=== PATIENT | female | born 1960 | race Caucasian/White ===

== ENCOUNTER 2019-01-19 08:40 | Day surgery (SDC) | payer BC ==
[2019-01-12 11:26] LABS: BASOPHILS # (AUTO) 0.1 X10'3 (0-0.2); BASOPHILS % (AUTO) 0.8 % (0-1); EOSINOPHILS # (AUTO) 0.2 X10'3 (0-0.9); EOSINOPHILS % (AUTO) 2.6 % (0-6); LYMPHOCYTES # (AUTO) 1.5 X10'3 (1.1-4.8); LYMPHOCYTES % (AUTO) 19.8 % (21-51); MEAN CORPUSCULAR HGB CONC 34.5 g/dL (33.0-36.5); MEAN CORPUSCULAR VOLUME 86.8 FL (78-98); MEAN PLATELET VOLUME 9.3 FL (7.4-10.4); MONOCYTES # (AUTO) 0.7 X10'3 (0-0.9); MONOCYTES % (AUTO) 9.2 % (2-12); NEUTROPHILS # (AUTO) 5.1 X10'3 (1.8-7.7); NEUTROPHILS % (AUTO) 67.6 % (42-75); PRE OP HEMATOCRIT 40.4 % (35.0-45.0); PRE OP HEMOGLOBIN 13.9 g/dL (12.0-16.0); PRE OP PLATELET COUNT 227 X10'3 (140-440); RED BLOOD COUNT 4.65 X10'6 (4.20-5.60); RED CELL DISTRIBUTION WIDTH 13.8 % (11.5-14.5)
[2019-01-12 11:46] LABS: ALBUMIN 3.7 G/DL (3.4-5.0); ALBUMIN/GLOBULIN RATIO 1.1 (1.1-1.5); ALKALINE PHOSPHATASE 97 IU/L (46-116); BLOOD UREA NITROGEN 21 MG/DL (7-18); BUN/CREATININE RATIO 25.3 (6.6-38.0); CHLORIDE 107 MMOL/L (99-107); CREATININE 0.83 MG/DL (0.40-0.90); PRE OP ALT 53 U/L (30-65); PRE OP ANION GAP 10 (8-16); PRE OP AST 21 U/L (10-37); PRE OP BILIRUB, TOTAL 0.4 MG/DL (0.0-1.0); PRE OP GLUCOSE 99 MG/DL (70-104); PRE OP POTASSIUM 4.3 MMOL/L (3.4-5.1); PRE OP SODIUM 144 MMOL/L (135-145); TOTAL CARBON DIOXIDE 27.4 MMOL/L (24-32); eGFR 71 ML/MIN
[~2019-01-19] VITALS: Ht 172.7 cm; Wt 95.2 kg
[~2019-01-19 08:40] MED LIST: ASPI-1265 PO; ESCI5TAB PO; METO50TA7 PO
[2019-01-19 09:00] VITALS: BP 132/88
[2019-01-19] MEDS ORDERED: DOCUMENT DATE & TIME OF BETA-BLOCKER PO ONE (09:15)
[2019-01-19] MEDS ORDERED: famotidine 20mg tablet PO ONE (09:15)
[2019-01-19] MEDS ORDERED: cefazolin/dext.iso 2gm/50ml 50 ML IV ONE (09:15)
[2019-01-19] MEDS ORDERED: ringers solution, lacted 1,000 ML IV SCH ×2 (09:15→11:27)
[2019-01-19] MEDS ORDERED: proCHLORperazine 10 MG/2 ml inj IV PRN (11:30)
[2019-01-19] MEDS ORDERED: morphine 4 MG/ML inj SYRINge IV PRN ×2 (11:30)
[2019-01-19] MEDS ORDERED: ondansetron/PF 4mg/2ml inj IV PRN (11:30)
[2019-01-19] MEDS ORDERED: meperidine/PF 25mg/ml syringe IV PRN ×3 (11:30)
[2019-01-19] MEDS ORDERED: BUPIVAcaine/PF 2.5mg/ml (0.25%) 10ml vial ONE (11:54)
[2019-01-19] MEDS ORDERED: fentaNYL/PF 50MCG/1 ML 2ML syringe ONE ×2 (12:02→12:57)
[2019-01-19] MEDS ORDERED: sevoflurane 250ml liquid IH ONE (12:02)
[2019-01-19] MEDS ORDERED: propofol inj 20 ML IV ONE (12:03)
[2019-01-19] MEDS ORDERED: midazolam 2 mg/2 ml injection ONE (12:03)
[2019-01-19] MEDS ORDERED: BUPIVAcaine/PF 2.5 mg/ml (0.25%) 30ml vial ONE (12:10)
[2019-01-19] MEDS ORDERED: acetaminophen 1,000mg/100ml IV 100 ML IV ONE (13:28)
[2019-01-19 13:57] VITALS: BP 120/80
--- NOTE | 2019-01-19 13:57 | NUR ---
Received from OR via [facility] , accompanied by Anesthesiologist HIMA and report given by Anesthesiolgist. PATIENT WITH 22G PIN IN RIGHT HAND RUNNING LR AT 100. LEFT WRIST AND HAND SPLINT IN PLACE AND IS CDI. VSS Addendum: 01/19/19 at 1417 by Ministerio Gupta RN, RN Amended: Links added.
[2019-01-19 14:07] VITALS: BP 168/91
[2019-01-19 14:17] VITALS: BP 154/88
[2019-01-19 14:27] VITALS: BP 150/79
[2019-01-19] MEDS ORDERED: ketorolac trometh. 30mg/ml inj. IV ONE (14:35)
--- NOTE | 2019-01-19 14:37 | NUR ---
ALL DC CRITERIA HAS BEEN MET. IV TAKEN OUT WITHOUT COMPLICATIONS. ALL INSTRUCTIONS COVERED AND ALL QUESTIONS ANSWERED. DRESSINGS CDI. OUT VIA WHEELCHAIR TO PERSONAL VEHICLE WHERE PATIENT WAS SECURED IN AND DRIVEN HOME BY FAMILY. SPOUSE PRESENT FOR DC PAPERWORK, ALL QUESTIONS ANSWERED, REINFORCED KEEPING WRIST ABOVE ELBOW AND ELBOW ABOVE HEART FOR SWELLING TO GO DOWN EFFECTIVELY. Addendum: 01/19/19 at 1503 by Ministerio Gupta RN, RN Amended: Links added.
== END 2019-01-19 14:37 | disposition home or self-care (01) ==
LOC: PAS 08:40
PROVIDERS: ATTEND Orthopaedic Surgery Hand Surgery
DX: S62.615A Displaced fracture of proximal phalanx of left ring finger, initial encounter for closed fracture (principal); S63.263A Dislocation of metacarpophalangeal joint of left middle finger, initial encounter; S63.653A Sprain of metacarpophalangeal joint of left middle finger, initial encounter; I48.91 Unspecified atrial fibrillation; F32.9 Major depressive disorder, single episode, unspecified; F41.9 Anxiety disorder, unspecified; I27.89 Other specified pulmonary heart diseases; I51.9 Heart disease, unspecified; Z88.2 Allergy status to sulfonamides; Z98.890 Other specified postprocedural states; Z90.710 Acquired absence of both cervix and uterus; Z79.82 Long term (current) use of aspirin; Z79.899 Other long term (current) drug therapy; W19.XXXA Unspecified fall, initial encounter; Y93.89 Activity, other specified; Y92.89 Other specified places as the place of occurrence of the external cause; Y99.8 Other external cause status; Z87.891 Personal history of nicotine dependence; Z88.8 Allergy status to other drugs, medicaments and biological substances
CPT/HCPCS: 26540; 26715; 26727; 36415; 80053; 82948; 85025; 93005; A6222; C1713; J0131; J1885; J2250; J2405; J2704; J3010; J3490; A4215; A4618; A6449; A7000; J7120